=== PATIENT | male | born 1985 | race Caucasian/White ===

== ENCOUNTER 2025-01-25 21:27 | Emergency (ER) | payer SELFPAY ==
[~2025-01-25] VITALS: Ht 182.9 cm; Wt 81.6 kg
[2025-01-25 21:46] VITALS: BP 149/97; PULSE 83; RESP 18; TEMP 98.6; O2SAT 99
[2025-01-25] MEDS ORDERED: ZOFRAN ONE (22:19)
[2025-01-25] MEDS ORDERED: NS 1000ML 1,000 ML ONE (22:19)
[2025-01-25] MEDS ORDERED: MORPHINE SULFATE ONE (22:20)
[2025-01-25] MEDS: ZOFRAN IV STA (22:24)
[2025-01-25] MEDS: NS 1000ML 1,000 ML IV ONE (22:25)
[2025-01-25] MEDS: MORPHINE SULFATE IV STA (22:25)
[2025-01-25 22:26] LABS: BASOPHIL # 0.0 10^3/uL (0.0-0.1); BASOPHIL % 0.0 % (0.2-1.2); EOSINOPHIL # 0.0 10^3/uL (0.0-0.2); EOSINOPHIL % 0.0 % (0.0-5.0); HEMATOCRIT(ML) 47.4 % (37.0-53.0); IG % 0.20 % (0.00-0.50); LYMPHOCYTES # 1.19 10^3/uL1 (1.0-4.8); LYMPHOCYTES % 8.5 % (24.0-44.0); MEAN CORP HGB 30.7 pg (26-34); MEAN CORP HGB CONCENTRATION 34.2 g/dL (33-36.5); MEAN CORP VOLUME 89.8 fL (78-100); MONOCYTES # 0.5 10^3/uL (0.3-0.8); MONOCYTES % 3.4 % (5.0-12.0); NEUTROPHIL # 12.3 10^3/uL (1.8-7.7); NEUTROPHILS % 87.9 % (41.0-85.0); RED BLOOD CELL 5.28 10^6/uL (4.50-5.90); RED CELL DISTRIBUTION WIDTH 12.1 % (11.5-14.5); WHITE BLOOD CELL 14.0 10^3/uL (4.5-11.0)
[2025-01-25 22:31] VITALS: BP 116/81; PULSE 86; RESP 18; O2SAT 99
[2025-01-25 22:49] LABS: ALANINE AMINOTRANSFERASE(ML) 29.0 U/L (12-78); ALBUMIN(ML) 4.3 g/dL (3.4-5.0); CREATININE SERUM 1.03 mg/dL (0.59-1.40); EST GFR, NON-AA 79.6 (>/=60)
[2025-01-25 23:00] VITALS: BP 148/97; PULSE 84; RESP 18; O2SAT 97
[2025-01-25 23:44] VITALS: BP 147/89; PULSE 90; RESP 18; O2SAT 97
[2025-01-25] MEDS ORDERED: COMPAZINE ONE (23:52)
[2025-01-25] MEDS: COMPAZINE IV STA (23:58)
[2025-01-26 00:13] LABS: LEUKOCYTE ESTERASE ,URINE NEGATIVE (NEGATIVE); NITRATE,URINE NEGATIVE (NEGATIVE)
[2025-01-26 00:17] LABS: APPEARANCE,URINE CLEAR; UA COLOR YELLOW
[2025-01-26] MEDS ORDERED: FLAGYL ONE (00:20)
[2025-01-26] MEDS ORDERED: IMODIUM ONE (00:20)
[2025-01-26] MEDS ORDERED: CIPRO ONE (00:20)
[2025-01-26] MEDS: CIPRO PO STA ×2 (00:26→00:27)
[2025-01-26] MEDS: FLAGYL PO STA (00:27)
[2025-01-26] MEDS: IMODIUM PO STA (00:27)
== END 2025-01-26 00:32 | disposition home or self-care (01) ==
LOC: ER 21:27
DX: K52.9 Noninfective gastroenteritis and colitis, unspecified (principal); E86.0 Dehydration; F12.90 Cannabis use, unspecified, uncomplicated
CPT/HCPCS: 99285; 74177; 96374; 96375; 80053; 85025; 36415; 83605; 81001; 83690; J2270; J7030; J0780; J2405; Q9965